=== PATIENT | male | born 1990 | race Caucasian/White ===

== ENCOUNTER 2018-12-07 09:52 | Emergency (ER) | payer BC, SELFPAY ==
--- NOTE | 2018-12-07 10:52 | EDPHYS ---
Physician Documentation [facility] Name: Russel Roy Age: 28 yrs Sex: Male : 1990 Arrival Date: 12/07/2018 Time: 09:55 Bed 17 Private MD: ED Physician Nicolas Ferreira HPI: 12/07 10:12 This 28 yrs old Male presents to ER via Ambulatory with complaints of Rash. [facility] 10:12 The patient's rash thought to be caused by an unknown cause. The rash is located on the jmm body diffusely. Onset: The symptoms/episode began/occurred gradually, 1 week(s) ago. Associated signs and symptoms: Pertinent positives: itching, Pertinent negatives: fever, swelling of lips, swelling of throat, swelling of tongue, vomiting, wheezing. This is a 28 year old male with no chronic medical conditions that presents to the ED with complaints of rash with itching for the past week. Symptoms began 1 week ago to the forehead. Patient denies shortness of breath, vomiting. . Historical: - Allergies: 10:03 No Known Allergies; aj1 - Home Meds: 10:03 None [Active]; aj1 - PMHx: 10:03 None; aj1 - PSHx: 10:03 None; aj1 - Immunization history:: Flu vaccine is not up to date. - Social history:: Smoking status: Patient/guardian denies using tobacco. - Ebola Screening: : Patient denies travel to an Ebola-affected area in the 21 days before illness onset. ROS: 10:12 Constitutional: Negative for fever, chills, and weight loss, Cardiovascular: Negative jmm for chest pain, palpitations, and edema, Respiratory: Negative for shortness of breath, cough, wheezing, and pleuritic chest pain. 10:12 Skin: Positive for rash. 10:12 All other systems are negative. Exam: 10:12 Constitutional: This is a well developed, well nourished patient who is awake, alert, jmm and in no acute distress. 10:12 ENT: Moist Mucus Membranes Neck: Trachea midline, Supple Chest/axilla: Normal chest wall appearance and motion. Cardiovascular: Regular rate and rhythm. No edema appreciated Respiratory: Normal respirations, no respiratory distress appreciated Abdomen/GI: Non distended, soft Back: Normal ROM 10:12 MS/ Extremity: Moves all extremities, no obvious deformities appreciated, no edema noted to the lower extremities Neuro: Awake and alert, normal gait Psych: Behavior is normal, Mood is normal, Patient is cooperative and pleasant 10:12 Head/face: facial rash noted. 10:12 Skin: erythema noted to the forehead, antecubital regions bilaterally. non tender to palpation, non indurated. Vital Signs: 10:03 BP 139 / 88; Pulse 74; Resp 16; Temp 98.0; Pulse Ox 100% on R/A; Weight 71.21 kg (R); aj1 Height 5 ft. 9 in. (175.26 cm) (R); Pain 6/10; 10:03 Body Mass Index 23.18 (71.21 kg, 175.26 cm) aj1 Visual Acuity: 10:31 Left Eye Visual acuity 20/20, ; Right Eye Visual acuity 20/25, ; Without Lenses; aj1 MDM: 10:11 Patient medically screened. [facility] 10:12 Data reviewed: vital signs, nurses notes. Counseling: I had a detailed discussion with [facility] the patient and/or guardian regarding: the historical points, exam findings, and any diagnostic results supporting the discharge/admit diagnosis, the need for outpatient follow up, to return to the emergency department if symptoms worsen or persist or if there are any questions or concerns that arise at home. ED course: Symptoms appear consistent with dermatitis. Patient is advised to follow up with dermatology for further evaluation. Patient is advised to return to the ED if he develops changes in vision. Shortness of breath or any other concerning symptoms. Patient understood and agrees with the plan of care. . 12/07 10:18 Order name: Visual Acuity; Complete Time: 10:31 [facility] Administered Medications: 11:02 Drug: Decadron 10 mg Route: IM; Site: left vastus lateralis; aj1 11:38 Follow up: Response: No adverse reaction aj1 Disposition: 12/07/18 10:51 Discharged to Home. Impression: Dermatitis, unspecified. - Condition is Stable. - Discharge Instructions: Rash. - Prescriptions for Prednisone 20 mg Oral Tablet - take 1 tablet by ORAL route once daily for 5 days Please take 3 tabs by mouth daily for 3 days, then 2 tabs by mouth daily for 3 days, then take 1 tab by mouth for 3 days, then take 1/2 tab by mouth for 3 days.; 20 tablet. - Work release form, Medication Reconciliation Form, Thank You Letter, Antibiotic Education, Prescription Opioid Use form. - Follow up: Private Physician; When: As needed; Reason: Recheck today's complaints, Continuance of care, Re-evaluation by your physician. Addendum: 12/08/2018 19:08 Co-signature as Attending Physician, Nicolas Ferreira MD I agree with the assessment and k dr plan of care. Signatures: Julita Goldman RN RN aj1 Nicolas Ferreira MD MD [facility] Yair Mazariegos PA PA jmm Corrections: (The following items were deleted from the chart) 12/07 11:41 10:51 12/07/2018 10:51 Discharged to Home. Impression: Dermatitis, unspecified. aj1 Condition is Stable. Forms are Medication Reconciliation Form, Thank You Letter, Antibiotic Education, Prescription Opioid Use. Follow up: Private Physician; When: As needed; Reason: Recheck today's complaints, Continuance of care, Re-evaluation by your physician. miko
--- NOTE | 2018-12-07 10:52 | ER ---
Nurse's Notes [facility] Name: Russel Roy Age: 28 yrs Sex: Male : 1990 Arrival Date: 12/07/2018 Time: 09:55 Bed 17 Private MD: Diagnosis: Dermatitis, unspecified Presentation: 12/07 10:02 Presenting complaint: Patient states: Rash to his face, bilateral AC, bilateral wrists, aj1 and left thigh for the past weeks. Reports that the rash is itchy and jones. Transition of care: patient was not received from another setting of care. Onset of symptoms was November 30, 2018. Risk Assessment: Do you want to hurt yourself or someone else? Patient reports no desire to harm self or others. Initial Sepsis Screen: Does the patient meet any 2 criteria? No. Patient's initial sepsis screen is negative. Does the patient have a suspected source of infection? No. Patient's initial sepsis screen is negative. Care prior to arrival: None. 10:02 Method Of Arrival: Ambulatory aj1 10:02 Acuity: KANE 4 aj1 Triage Assessment: 10:03 General: Appears in no apparent distress. uncomfortable, Behavior is calm, cooperative, aj1 appropriate for age. Pain: Complains of pain in face, right antecubital area, right wrist, left antecubital area, left wrist and medial aspect of left thigh Pain currently is 6 out of 10 on a pain scale. Historical: - Allergies: 10:03 No Known Allergies; aj1 - Home Meds: 10:03 None [Active]; aj1 - PMHx: 10:03 None; aj1 - PSHx: 10:03 None; aj1 - Immunization history:: Flu vaccine is not up to date. - Social history:: Smoking status: Patient/guardian denies using tobacco. - Ebola Screening: : Patient denies travel to an Ebola-affected area in the 21 days before illness onset. Screenin:05 Abuse screen: Denies threats or abuse. Denies injuries from another. Nutritional aj1 screening: No deficits noted. Tuberculosis screening: No symptoms or risk factors identified. 11:39 Fall Risk None identified. aj1 Assessment: 10:05 General: Appears in no apparent distress. uncomfortable, Behavior is calm, cooperative, aj1 appropriate for age. Pain: Complains of pain in face and medial aspect of left thigh and right wrist and right antecubital area and left wrist and left antecubital area Pain does not radiate. Pain currently is 6 out of 10 on a pain scale. Quality of pain is described as burning, Pain began one week ago Is continuous. Neuro: Level of Consciousness is awake, alert, obeys commands, Oriented to person, place, time, situation. Cardiovascular: Patient's skin is warm and dry. Respiratory: Airway is patent Respiratory effort is even, unlabored, Respiratory pattern is regular, symmetrical. GI: No signs and/or symptoms were reported involving the gastrointestinal system. : No signs and/or symptoms were reported regarding the genitourinary system. EENT: No signs and/or symptoms were reported regarding the EENT system. Derm: Rash noted that is itchy, red, raised, on face and medial aspect of left thigh and right wrist and right antecubital area and left wrist and left antecubital area. Musculoskeletal: No signs and/or symptoms reported regarding the musculoskeletal system. Circulation, motion, and sensation intact. 11:05 Reassessment: Patient appears in no apparent distress at this time. No changes from aj1 previously documented assessment. Patient and/or family updated on plan of care and expected duration. Pain level reassessed. Patient is alert, oriented x 3, equal unlabored respirations, skin warm/dry/pink. Vital Signs: 10:03 BP 139 / 88; Pulse 74; Resp 16; Temp 98.0; Pulse Ox 100% on R/A; Weight 71.21 kg (R); aj1 Height 5 ft. 9 in. (175.26 cm) (R); Pain 6/10; 10:03 Body Mass Index 23.18 (71.21 kg, 175.26 cm) aj1 Visual Acuity: 10:31 Left Eye Visual acuity 20/20, ; Right Eye Visual acuity 20/25, ; Without Lenses; aj1 ED Course: 09:55 Patient arrived in ED. rg4 10:01 Yair Mazariegos PA is PHCP. jmm 10:01 Nicolas Ferreira MD is Attending Physician. jmm 10:02 Julita Goldman RN is Primary Nurse. aj1 10:03 Triage completed. aj1 10:03 Arm band placed on Patient placed in an exam room. aj1 10:05 Patient has correct armband on for positive identification. Bed in low position. Call aj1 light in reach. 10:05 No provider procedures requiring assistance completed. aj1 11:39 Patient did not have IV access during this emergency room visit. aj1 Administered Medications: 11:02 Drug: Decadron 10 mg Route: IM; Site: left vastus lateralis; aj1 11:38 Follow up: Response: No adverse reaction aj1 Outcome: 10:51 Discharge ordered by . miko 11:40 Discharged to home ambulatory. aj1 11:40 Condition: good 11:40 Discharge instructions given to patient, Instructed on discharge instructions, follow up and referral plans. medication usage, Demonstrated understanding of instructions, follow-up care, medications, Prescriptions given X 1. 11:41 Patient left the ED. aj1 Signatures: Julita Goldman RN RN aj1 Yair Mazariegos PA PA jmm Garcia, Rubi rg4
[2018-12-07] MEDS ORDERED: DEXAMETHASONE 4 MG/ML VIAL ONE (11:00)
== END 2018-12-07 11:41 | disposition home or self-care (01) ==
LOC: ER 09:52
DX: L30.9 Dermatitis, unspecified (principal)
CPT/HCPCS: 96372; 99283

== ENCOUNTER 2020-08-12 16:06 | Emergency (ER) | payer SELFPAY ==
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
[2020-08-12] MEDS ORDERED: TETANUS & DIPHTHERIA TOX,ADULT 0.5 ML VIAL ONE (16:43)
[2020-08-12] MEDS ORDERED: KETOROLAC 30 MG/ML INJ ONE (16:43)
[2020-08-12 17:55] VITALS: BP 127/86; TEMP 98; O2SAT 99
== END 2020-08-12 17:09 | disposition home or self-care (01) ==
LOC: ER 16:06
DX: T21.22XA Burn of second degree of abdominal wall, initial encounter (principal); X11.8XXA Contact with other hot tap-water, initial encounter; Y93.G3 Activity, cooking and baking; Y92.009 Unspecified place in unspecified non-institutional (private) residence as the place of occurrence of the external cause; Z23 Encounter for immunization
CPT/HCPCS: 90471; 90714; 96372; 99283

== ENCOUNTER 2022-09-15 19:28 | Emergency (ER) | payer SELFPAY ==
--- OUTSIDE RECORDS SUMMARY | 2022-09-15 19:31 | XMS REPORT | Continuity of Care Document ---
:1990 Author Organization [facility] t Address [address] [place] [address] Care Team Providers Name Role Phone Kiana Sanchez Attending Clinician Unavailable Problems This patient has no known problems. Allergies, Adverse Reactions, Alerts This patient has no known allergies or adverse reactions. Medications This patient has no known medications. Procedures This patient has no known procedures. Encounters Start End Encounter Admission Attending Care Care Encounter Source Date/Time Date/Time Type Type Clinicians Facility Department ID 2021-12-09 Outpatient Sanchez, [facility] [id number] Common 10:56:02 Kiana [facility] 2021-11-04 Outpatient Sanchez, [facility] [id number] Common 14:39:16 Kiana [facility] 2021-11-04 Outpatient Sanchez, [facility] [id number] Common 14:24:57 Kiana [id number] [facility] 2021-11-04 Outpatient Sanchez, [facility] [id number] Common 14:24:40 Kiana [id number] [facility] 2021-11-04 Outpatient Sanchez, [facility] [id number] Common 14:22:18 Kiana [id number] [facility] Results This patient has no known results.
--- NOTE | 2022-09-15 20:47 | EDPHYS ---
Physician Documentation [facility] Name: Russel Roy Age: 32 yrs Sex: Male : 1990 Arrival Date: 09/15/2022 Time: 19:32 Bed 11 Private MD: ED Physician Historical: - Allergies: 09/15 20:02 No Known Allergies; tw5 - Home Meds: 20:02 None [Active]; tw5 - PMHx: 20:02 None; tw5 - PSHx: 20:02 None; tw5 - Immunization history:: Last tetanus immunization: up to date. - Social history:: Smoking status: Patient reports the use of cigarette tobacco products, smokes one-half pack cigarettes per day, Reported history of juuling and/or vaping. Vital Signs: 20:01 BP 113 / 85; Pulse 63; Resp 18; Temp 98.6; Pulse Ox 100% on R/A; Weight 86.18 kg; tw5 Height 5 ft. 10 in. (177.80 cm); Pain 1/10; 20:32 BP 116 / 88; Pulse 67; Resp 18; Pulse Ox 100% on R/A; ld1 20:01 Body Mass Index 27.26 (86.18 kg, 177.80 cm) tw5 MDM: 20:40 Patient medically screened. sb4 Administered Medications: No medications were administered Disposition Summary: 09/15/22 20:47 Eloped Disposition: before being seen by provider sb4 Reason: (see nurse's notes) sb4 Signatures: Maricarmen Magana tw5 Clarisa Jensen PA-C PA-C sb4
--- NOTE | 2022-09-15 20:47 | ER ---
Nurse's Notes [facility] Name: Russel Roy Age: 32 yrs Sex: Male : 1990 Arrival Date: 09/15/2022 Time: 19:32 Bed 11 Private MD: Diagnosis: Presentation: 09/15 20:01 Chief complaint: Patient states: "I was at work and I tripped over a metal lift. I hit tw5 it my knee on it and it had a rough edge so it cut me and pushed my skin back.". Coronavirus screen: Vaccine status: Patient reports being unvaccinated. Ebola Screen: Patient negative for fever greater than or equal to 101.5 degrees Fahrenheit, and additional compatible Ebola Virus Disease symptoms Patient denies exposure to infectious person. Patient denies travel to an Ebola-affected area in the 21 days before illness onset. Initial Sepsis Screen: Does the patient meet any 2 criteria? No. Patient's initial sepsis screen is negative. Does the patient have a suspected source of infection? No. Patient's initial sepsis screen is negative. Risk Assessment: Do you want to hurt yourself or someone else? Patient reports no desire to harm self or others. Onset of symptoms was September 15, 2022 at 15:30. 20:01 Method Of Arrival: Ambulatory tw5 20:01 Acuity: KANE 5 tw5 Triage Assessment: 20:02 General: Appears in no apparent distress. Behavior is calm, cooperative, appropriate tw5 for age. Pain: Pain currently is 1 out of 10 on a pain scale. Musculoskeletal: Range of motion: intact in all extremities. Injury Description: Laceration sustained to right knee is not bleeding, was sustained 4-6 hours ago. Historical: - Allergies: 20:02 No Known Allergies; tw5 - Home Meds: 20:02 None [Active]; tw5 - PMHx: 20:02 None; tw5 - PSHx: 20:02 None; tw5 - Immunization history:: Last tetanus immunization: up to date. - Social history:: Smoking status: Patient reports the use of cigarette tobacco products, smokes one-half pack cigarettes per day, Reported history of juuling and/or vaping. Screenin:32 Abuse screen: Denies threats or abuse. Denies injuries from another. Nutritional ld1 screening: No deficits noted. Tuberculosis screening: No symptoms or risk factors identified. Fall Risk None identified. Assessment: 20:32 Reassessment: Patient appears in no apparent distress at this time. Patient and/or ld1 family updated on plan of care and expected duration. Pain level reassessed. Patient is alert, oriented x 3, equal unlabored respirations, skin warm/dry/pink. See triage assessment. 20:44 Reassessment:. ld1 20:47 Reassessment: Pt left from room. "Stated I decided I do not need to be seen anymore." ld1 Left to notify provider - upon arrival back to room, pt was gone. Vital Signs: 20:01 BP 113 / 85; Pulse 63; Resp 18; Temp 98.6; Pulse Ox 100% on R/A; Weight 86.18 kg; tw5 Height 5 ft. 10 in. (177.80 cm); Pain 1/10; 20:32 BP 116 / 88; Pulse 67; Resp 18; Pulse Ox 100% on R/A; ld1 20:01 Body Mass Index 27.26 (86.18 kg, 177.80 cm) tw5 ED Course: 19:32 Patient arrived in ED. ja2 20:02 Triage completed. tw5 20:02 Arm band placed on. tw5 20:32 Sarah Nevarez, LOU is Primary Nurse. ld1 20:32 Patient has correct armband on for positive identification. Bed in low position. Call ld1 light in reach. Side rails up X2. Pulse ox on. NIBP on. Notified ED physician of. Door closed. Noise minimized. 20:32 No provider procedures requiring assistance completed. ld1 20:40 Clarisa Jensen PA-C is PHCP. sb4 20:40 Quentin Cornell MD is Attending Physician. sb4 Administered Medications: No medications were administered Medication: 20:32 VIS not applicable for this client. ld1 Outcome: 20:48 Patient left the ED. ld1 Signatures: Sarah Nevarez RN RN ld1 Cassie Salgado Tiffany tw5 Clarisa Jensen PA-C PA-C sb4
[2022-09-16 02:10] VITALS: TEMP 98.6; O2SAT 100
[2022-09-16 02:11] VITALS: BP 116/88
== END 2022-09-15 20:48 | disposition left against medical advice (07) ==
LOC: ER 19:28
DX: Z53.21 Procedure and treatment not carried out due to patient leaving prior to being seen by health care provider (principal)
CPT/HCPCS: 99282

== ENCOUNTER 2022-11-07 21:53 | Emergency (ER) | payer SELFPAY ==
[2022-11-07] MEDS ORDERED: LORazepam 2 MG/ML VIAL ONE (22:05)
--- OUTSIDE RECORDS SUMMARY | 2022-11-07 22:05 | XMS REPORT | Continuity of Care Document ---
:1990 Author Organization [facility] t Address [address] [place] [address] Care Team Providers Name Role Phone Kiana [...] Facility Department ID 2021-12-09 Outpatient Sanchez, [facility] [id number] Common 10:56:02 Kiana [facility] 2021-11-04 Outpatient Sanchez, STLC [facility] [id number] Common 14:39:16 Kiana [facility] 2021-11-04 Outpatient Sanchez, STLC [facility] [id number] Common 14:24:57 Kiana [id number] [facility] 2021-11-04 Outpatient Sanchez, STLMLC [facility] [id number] Common 14:24:40 Kiana [id number] [facility] 2021-11-04 Outpatient Sanchez, STLC [facility] [id number] Common 14:22:18 Kiana [id number] [facility] Results This patient has no known results.
[2022-11-07 22:27] LABS: Hematocrit 42.7 % (39.6-49.0); Lymphocytes % 7.4 % (15.3-44.8); MCV 89.1 fL (80-100); MPV 8.5 fL (7.6-11.3); RBC Red Blood Cell Count 4.78 M/uL (4.33-5.43)
[2022-11-07 22:33] LABS: Albumin 4.6 g/dL (3.4-5.0); Protein, Total 8.1 g/dL (6.4-8.2)
[2022-11-07] MEDS ORDERED: NA CHLORIDE 0.9% 1,000 ML ONE (22:45)
[2022-11-07] MEDS ORDERED: KETOROLAC 30 MG/ML INJ ONE (23:09)
[2022-11-08 01:38] LABS: Potassium 4.1 mmol/L (3.5-5.1)
--- NOTE | 2022-11-08 01:42 | EDPHYS ---
Physician Documentation [facility] Name: Russel Roy Age: 32 yrs Sex: Male : 1990 Arrival Date: 11/07/2022 Time: 21:54 Bed 4 Private MD: ED Physician Dk Carpenter HPI: 11/07 23:50 This 32 yrs old Male presents to ER via EMS with complaints of Nausea, vomiting, kb diarrhea. 23:50 The patient presents to the emergency department with nausea, vomiting, diarrhea. kb Onset: The symptoms/episode began/occurred this morning. Possible causes: bad food exposure. The symptoms are aggravated by nothing. The symptoms are alleviated by nothing. Severity of symptoms: At their worst the symptoms were mild in the emergency department the symptoms are unchanged. The patient has not experienced similar symptoms in the past. The patient has not recently seen a physician. Patient reports he ate crawfish yesterday woke up at about 530 this morning with nausea and severe vomiting. States he had some diarrhea today. Unable to tolerate anything by mouth today. Decreased urination.. Historical: - Allergies: 21:57 No Known Allergies; jb4 - PMHx: 21:57 Anxiety; jb4 - Immunization history:: Adult Immunizations up to date. - Social history:: Smoking status: Patient reports the use of cigarette tobacco products, denies chronic smoking, but will smoke occasionally, Patient uses alcohol, occasionally. ROS: 23:50 Constitutional: Negative for fever, chills, and weight loss. kb 23:50 Abdomen/GI: Positive for nausea, vomiting, and diarrhea. 23:50 All other systems are negative. Exam: 23:50 Constitutional: This is a well developed, well nourished patient who is awake, alert, kb and in no acute distress. Head/Face: Normocephalic, atraumatic. ENT: Moist Mucous membranes Cardiovascular: Regular rate and rhythm with a normal S1 and S2. No gallops, murmurs, or rubs. No pulse deficits. Respiratory: Respirations even and unlabored. No increased work of breathing. Talking in full sentences Abdomen/GI: Soft, non-tender. No distention Skin: Warm, dry with normal turgor. Normal color. MS/ Extremity: Pulses equal, no cyanosis. Neurovascular intact. Full, normal range of motion. Neuro: Awake and alert, GCS 15, oriented to person, place, time, and situation. Moves all extremities. Normal gait. Vital Signs: 21:55 BP 134 / 87; Pulse 99; Resp 14; Temp 98.5; Pulse Ox 100% on R/A; Weight 83.91 kg; tw5 Height 5 ft. 9 in. (175.26 cm); Pain 01; 22:56 BP 123 / 83; Pulse 87; Resp 26; Pulse Ox 99% on R/A; jb4 11/08 00:48 BP 113 / 75; Pulse 92; Resp 18; Pulse Ox 100% on R/A; jb4 01:48 BP 101 / 72; Pulse 94; Resp 16; Pulse Ox 100% on R/A; jb4 11/07 21:55 Body Mass Index 27.32 (83.91 kg, 175.26 cm) tw5 MDM: 11/07 21:55 Patient medically screened. kb 23:51 Differential diagnosis: Nonspecific abd pain, gastritis, viral gastroenteritis, Food kb poisoning, dehydration. Data reviewed: vital signs, nurses notes. Consideration of Admission/Observation Escalation of care including admission/observation considered. Historians other than the Patient: EMS: [facility]. 11/08 00:50 Transition of care: After a detail discussion of the patient's case, care is kb transferred to Dk Carpenter DO. 01:00 Transition of care: Care assumed from Genevieve LEDEZMA. ca3 01:42 I considered the following discharge prescriptions or medication management in the ca3 emergency department Medications were administered in the Emergency Department. See MAR. Care significantly affected by the following Social Determinants of Health: Poor access to healthcare and/or lack of insurance. Counseling: I had a detailed discussion with the patient and/or guardian regarding: the historical points, exam findings, and any diagnostic results supporting the discharge/admit diagnosis, lab results, the need for outpatient follow up, to return to the emergency department if symptoms worsen or persist or if there are any questions or concerns that arise at home. Special discussion: I discussed with the patient/guardian in detail that at this point there is no indication for admission to the hospital. It is understood, however, that if the symptoms persist or worsen the patient needs to return immediately for re-evaluation. ED course: On reevaluation patient is improved, alert and orient x4, no apparent distress, nontoxic-appearing. Discussed labs with patient. Patient to follow-up with his primary care physician in 2 to 3 days. Patient understands and agrees with plan. All questions were answered. Return precautions discussed include vomiting, inability to tolerate p.o., abdominal pain, fevers, or any other concerns.. 11/07 21:57 Order name: CBC with Diff; Complete Time: 22:35 kb 11/07 21:57 Order name: CMP; Complete Time: 22:36 kb 11/07 21:57 Order name: Lipase; Complete Time: 22:36 kb 11/07 23:51 Order name: BMP; Complete Time: 01:39 kb 11/07 21:57 Order name: IV Saline Lock; Complete Time: 21:58 kb 11/07 21:57 Order name: Labs collected and sent; Complete Time: 21:58 kb Administered Medications: 11/07 22:08 Drug: Ativan (LORazepam) 0.5 mg Route: IVP; Site: left antecubital; [facility] 23:00 Follow up: Response: No adverse reaction; Marked relief of symptoms [facility] 22:44 Drug: NS 0.9% 1000 ml Route: IV; Rate: 1000 ml; Site: left antecubital; 4 11/08 00:00 Follow up: Response: No adverse reaction; IV Status: Completed infusion; IV Intake: jb4 1000ml 11/07 23:21 Drug: Ketorolac 15 mg Route: IVP; Site: left antecubital; jb4 11/08 00:00 Follow up: Response: No adverse reaction; Marked relief of symptoms; Pain is decreased jb4 Disposition: 01:42 Co-signature as Attending Physician, Dk Carpenter DO. ms3 Disposition Summary: 11/08/22 01:41 Discharge Ordered Location: Home ms3 Condition: Stable ms3 Diagnosis - Nausea with vomiting, unspecified ms3 - Dehydration ms3 - Diarrhea, unspecified ms3 Followup: kb - With: Emergency Department - When: As needed - Reason: Worsening of condition Followup: kb - With: Private Physician - When: 2 - 3 days - Reason: Recheck today's complaints, Continuance of care, Re-evaluation by your physician Discharge Instructions: - Discharge Summary Sheet kb - Food Choices to Help Relieve Diarrhea, Adult kb - Viral Gastroenteritis, Adult, [id number] kb - Nausea and Vomiting, Adult, [id number] kb - Diarrhea, Adult, [id number] kb Forms: - Medication Reconciliation Form ms3 - Thank You Letter ms3 - Antibiotic Education ms3 - Prescription Opioid Use ms3 - Work release form vc1 Prescriptions: - dicyclomine 20 mg Oral Tablet - take 1 tablet by ORAL route 4 times per day As needed; 20 tablet; Refills: 0, kb Product Selection Permitted - ondansetron 4 mg Oral - take 1 tablet by SUBLINGUAL route every 6 hours As needed; 15 tablet; Refills: kb 0, Product Selection Permitted Signatures: Dispatcher [employer] [facility] Genevieve Parish, OVERWEAVER-C OVERWEAVER-Ckb David Marie, LOU RN jb4 Dk Carpenter DO DO ms3 Maricarmen Magana tw5
--- NOTE | 2022-11-08 01:42 | ER ---
Nurse's Notes [facility] Name: Russel Roy Age: 32 yrs Sex: Male : 1990 Arrival Date: 11/07/2022 Time: 21:54 Bed 4 Private MD: Diagnosis: Nausea with vomiting, unspecified;Dehydration;Diarrhea, unspecified Presentation: 11/07 21:55 Chief complaint:. Chief complaint: Patient states: " I have been vomiting all day long. tw5 It wears me out and I get really light headed after I vomit. I am also feeling extremely anxious.". Coronavirus screen: Vaccine status: Patient reports being unvaccinated. Ebola Screen: Patient negative for fever greater than or equal to 101.5 degrees Fahrenheit, and additional compatible Ebola Virus Disease symptoms Patient denies exposure to infectious person. Patient denies travel to an Ebola-affected area in the 21 days before illness onset. Initial Sepsis Screen: Does the patient meet any 2 criteria? No. Patient's initial sepsis screen is negative. Does the patient have a suspected source of infection? No. Patient's initial sepsis screen is negative. Risk Assessment: Do you want to hurt yourself or someone else? Patient reports no desire to harm self or others. Onset of symptoms was November 07, 2022 at 05:00. 21:55 Method Of Arrival: EMS: [facility] tw5 21:55 Acuity: KANE 3 tw5 21:56 Chief complaint: EMS states: Pt reports vomiting since 5am. Was dehydrated upon EMS jb4 arrival. Given 4mg of zofran and 300ml of LR via 20g to the LAC. Reports intermittent diarrhea. Triage Assessment: 21:55 General: Appears in no apparent distress. Behavior is calm, cooperative, appropriate tw5 for age, texting on the phone with " My girlfriend in [place], she just wants to make sure I am okay.". Pain: Complains of pain in back Pain currently is 1 out of 10 on a pain scale. Historical: - Allergies: 21:57 No Known Allergies; jb4 - PMHx: 21:57 Anxiety; jb4 - Immunization history:: Adult Immunizations up to date. - Social history:: Smoking status: Patient reports the use of cigarette tobacco products, denies chronic smoking, but will smoke occasionally, Patient uses alcohol, occasionally. Screenin:57 [facility] ED Fall Risk Assessment (Adult) History of falling in the last 3 months, tw5 including since admission Yes- single mechanical fall (1 pt). Abuse screen: Denies threats or abuse. Denies injuries from another. Nutritional screening: No deficits noted. Tuberculosis screening: No symptoms or risk factors identified. Assessment: 21:57 GI: Reports nausea, vomiting. tw5 22:56 Reassessment: Patient appears in no apparent distress at this time. Patient and/or jb4 family updated on plan of care and expected duration. Pain level reassessed. Patient is alert, oriented x 3, equal unlabored respirations, skin warm/dry/pink. 11/08 00:48 Reassessment: Patient appears in no apparent distress at this time. Patient and/or jb4 family updated on plan of care and expected duration. Pain level reassessed. Patient is alert, oriented x 3, equal unlabored respirations, skin warm/dry/pink. Patient states feeling better. 01:48 Reassessment: Patient appears in no apparent distress at this time. Patient and/or jb4 family updated on plan of care and expected duration. Pain level reassessed. Patient is alert, oriented x 3, equal unlabored respirations, skin warm/dry/pink. Vital Signs: 11/07 21:55 BP 134 / 87; Pulse 99; Resp 14; Temp 98.5; Pulse Ox 100% on R/A; Weight 83.91 kg; tw5 Height 5 ft. 9 in. (175.26 cm); Pain 10; 22:56 BP 123 / 83; Pulse 87; Resp 26; Pulse Ox 99% on R/A; jb4 11/08 00:48 BP 113 / 75; Pulse 92; Resp 18; Pulse Ox 100% on R/A; jb4 01:48 BP 101 / 72; Pulse 94; Resp 16; Pulse Ox 100% on R/A; jb4 11/07 21:55 Body Mass Index 27.32 (83.91 kg, 175.26 cm) tw5 ED Course: 11/07 21:54 Patient arrived in ED. tw5 21:55 Genevieve Parish FNP-C [facility]. kb 21:55 Dk Carpenter DO is Attending Physician. kb 21:55 Arm band placed on Patient placed in an exam room. tw5 21:56 David Marie, RN is Primary Nurse. jb4 21:57 Triage completed. tw5 21:57 Patient has correct armband on for positive identification. Placed in gown. Bed in low tw5 position. Call light in reach. Side rails up X 1. Client placed on continuous cardiac and pulse oximetry monitoring. NIBP monitoring applied. Door closed. Noise minimized. Lights dimmed. Warm blanket given. Verbal reassurance given. 21:57 Maintain EMS IV. Dressing intact. Good blood return noted. Site clean \\T\\ dry. Gauge \\T\\ tw 5 site: 20 G LAC. 21:58 No provider procedures requiring assistance completed. tw5 11/08 01:48 IV discontinued, intact, bleeding controlled, No redness/swelling at site. Pressure jb4 dressing applied. Administered Medications: 11/07 22:08 Drug: Ativan (LORazepam) 0.5 mg Route: IVP; Site: left antecubital; jb4 23:00 Follow up: Response: No adverse reaction; Marked relief of symptoms jb4 22:44 Drug: NS 0.9% 1000 ml Route: IV; Rate: 1000 ml; Site: left antecubital; jb4 11/08 00:00 Follow up: Response: No adverse reaction; IV Status: Completed infusion; IV Intake: jb4 1000ml 11/07 23:21 Drug: Ketorolac 15 mg Route: IVP; Site: left antecubital; jb4 11/08 00:00 Follow up: Response: No adverse reaction; Marked relief of symptoms; Pain is decreased jb4 Medication: 11/07 21:57 VIS not applicable for this client. tw5 Intake: 11/08 00:00 IV: 1000ml; Total: 1000ml. jb4 Outcome: 01:41 Discharge ordered by . ms3 01:48 Discharged to home ambulatory. jb4 01:48 Condition: stable 01:48 Discharge instructions given to patient, Instructed on discharge instructions, follow up and referral plans. medication usage, Demonstrated understanding of instructions, follow-up care, medications, Prescriptions given X 2. 01:50 Patient left the ED. jb4 Signatures: Genevieve Parish, WAGON DRILLER-C WAGON DRILLER-CkDavid Bermudez RN RN jb4 Dk Carpenter DO DO ms3 [place] Maricarmen tw5 Corrections: (The following items were deleted from the chart) 01:49 01:48 Discharge instructions given to patient, Instructed on discharge instructions, jb4 follow up and referral plans. medication usage, Demonstrated understanding of instructions, follow-up care, medications, Prescriptions given X 1, jb4
[2022-11-08 02:17] VITALS: TEMP 98.5
[2022-11-08 02:19] VITALS: O2SAT 100
[2022-11-08 02:20] VITALS: BP 101/72
== END 2022-11-08 01:50 | disposition home or self-care (01) ==
LOC: ER 21:53
DX: E86.0 Dehydration (principal); R19.7 Diarrhea, unspecified; Z72.0 Tobacco use
CPT/HCPCS: 36415; 80048; 80053; 83690; 85025; 96361; 96374; 96375; 99283; J7030

== ENCOUNTER 2024-11-26 13:06 | Emergency (ER) | payer SELFPAY ==
--- OUTSIDE RECORDS SUMMARY | 2024-11-26 13:08 | XMS REPORT | Continuity of Care Document ---
Author Name Unknown Address [address] [facility] [address] [place] [address] [facility] thconnect Address [address] [facility] [address] [place] [address] Care Team Providers Care Radiology Practitioner Assistant Name Role Phone Pcp, Patient Does Not Have A Primary Care Physic jose david Kiana Sanchez Attending Clinician Unavailable Avani Ballard MD Attending Clinician [phone] Jennifer Van RN Attending Clinician [phone] CARLOS WALTERS Attending Clinician Laury Tobin MD Attending Clinician [phone] Carlos Walters MD Attending Clinician [phone] CARLOS WALTERS Admitting Clinician Carlos Nielsen MD Admitting Clinician [phone] Payers Payer Name Policy Type Policy Number Effective Date Expirati on Date Source Problems Condition Name Condition Details Condition Category Status Onset Date Resolution Date Last Treatment Date Treating Clinician Comments Source RLQ abdominal pain RLQ abdominal pain Disease Active 03-12 00:00: 00 [facility] Allergies, Adverse Reactions, Alerts Allergy Name Allergy Type Status Severity Reaction(s) Onset Date Inactive Date Treating Clinician Comments Source NO KNOWN ALLERGIE S Drug Class Active [facility] Social History Social Habit Start Date Stop Date Quantity Comments Source Sexual orientation U [facility] History of tobacco use Passive smoker [facility] Cigarettes smoked current (pack per day) - Reported 2024-03-12 00:00:00 2024-03-12 00:00:00 [facility] Cigarette pack-years 2024-03-12 00:00:00 2024-03-12 00:00:00 [facility] Tobacco use and exposure 2024-03-12 00:00:00 2024-03-12 00:00:00 Former smokeless tobacco user [facility] History of Social function 2024-03-12 00:00:00 2024-03-12 00:00:00 [facility] Education 2024-03-12 00:00:00 2024-03-12 00:00:00 21 [facility] Sex assigned at 1990 00:00:00 1990 00:00:00 [facility] Smoking Status Start Date Stop Date Source Smokes tobacco daily 2024-03-12 00:00:00 [facility] Medications Ordered Medication Name Filled Medication Name Start Date Stop Date Current Medication? Ordering Clinician Indication Dosage Frequency Signature (SIG) Comments Components Source enoxaparin (LOVENOX) injection 40 mg 03-13 22:00: 00 Yes 40mg 40 mg, Subcutaneo us, DAILY AT 1700, First dose on Tue03/13/24 at 1700, Until Discontinu ed, Routine [facility] piperacilli n-tazobacta m (ZOSYN) 3.375 g in NaCl 0.9% (NS) 100 mL MINI-BAG 03-13 10:45: 00 03-13 14:09 :43 No 3.375g 3.375 g, IV Piggyback, Q8H ABX, 21 doses, First dose on Tue03/13/24 at 0545, Last dose on Tue03/19/24 at 2145, Administer over 4 Hours, 100 mL, Reason for Anti-Infec tive: Documented Infection, Documented Infection Site: Abdominal, Duration of Therapy: 7 days [facility] morpHINE (4 mg/mL) injection 4 mg 03-13 02:30: 00 03-13 02:28 :00 No 4mg 4 mg, Slow IV Push, ONCE, 1 dose, On Tue03/12/24 at 2130, STAT [facility] ondansetron (ZOFRAN (PF)) injection 4 mg 03-13 02:30: 00 03-13 02:28 :00 No 4mg 4 mg, Slow IV Push, ONCE, 1 dose, On Tue03/12/24 at 2130, RIGOBERTO [facility] NaCl 0.9% (NS) IV infusion 1,000 mL 03-13 02:30: 00 03-13 13:56 :02 No 1000mL at 100 mL/hr, IV Infusion, CONTINUOUS , Starting on Tue03/12/24 at 2130, Until Tue03/13/24 at 0856, Routine [facility] ondansetron (ZOFRAN (PF)) injection 4 mg 03-13 02:14: 47 Yes 4mg 4 mg, Slow IV Push, Q6HPRN, Starting on Tue03/12/24 at 2114, Until Discontinu ed, Routine, Nausea and Vomiting (N/V) [facility] FENTanyl PF (SUBLIMAZE (PF)) injection 12.5 mcg 03-13 02:14: 43 03-13 15:53 :16 No 12.5ug 12.5 mcg, Slow IV Push, Q4HPRN, Starting on Tue03/12/24 at 2114, Until Tue03/13/24 at 1053, Routine, Pain (scale 7-10), Pain (scale 4-6) [facility] LORazepam (ATIVAN) injection 1 mg 03-13 01:45: 00 03-13 01:38 :00 No 1mg 1 mg, Slow IV Push, ONCE, 1 dose, On Tue03/12/24 at 2045, STAT [facility] ondansetron (ZOFRAN (PF)) injection 4 mg 03-12 23:45: 00 03-12 23:17 :00 No 4mg 4 mg, Slow IV Push, ONCE, 1 dose, On Tue03/12/24 at 1845, RIGOBERTO [facility] iopamidol (ISOVUE 370-500 mL) injection 79 mL 03-12 23:29: 00 03-12 23:29 :00 No [id number] 79mL 79 mL, Intravenou s, ONCE, 1 dose, On Tue03/12/24 at 1845, Routine [facility] morpHINE (4 mg/mL) injection 4 mg 03-12 22:45: 00 03-12 23:21 :00 No 4mg 4 mg, Slow IV Push, ONCE, 1 dose, On Tue03/12/24 at 1745, STAT [facility] Vital Signs Vital Name Observation Time Observation Value Comments S ource Systolic blood pressure 2024-03-13 13:00:00 120 mm[Hg] [facility] Diastolic blood pressure 2024-03-13 13:00:00 80 mm[Hg] [facility] Heart rate 2024-03-13 13:00:00 58 /min [facility] Body temperature 2024-03-13 13:00:00 36.44 Laya [facility] Oxygen saturation in Arterial blood by Pulse oximetry 2024-03-13 13:00:00 98 /min [facility] Respiratory rate 2024-03-13 05:15:00 16 /min [facility] Body height 2024-03-13 03:03:00 175.3 cm [facility] Body weight 2024-03-13 03:03:00 81.647 kg [facility] BMI 2024-03-13 03:03:00 26.58 kg/m2 [facility] Procedures Procedure Date / Time Performed Performing Clinician Source MAGNESIUM 2024-03-13 10:27:00 [facility]OL[facility] (NA, K, CL, CO2, GLUCOSE, BUN, CREATININE, CA) 2024-03-13 10:27:00 Carlos Walters [facility] CBC WITH DIFF 2024-03-13 10:27:00 [facility] PR[facility] / INR 2024-03-13 10:27:00 Sierra Walters [facility] ACTIVATED PARTIAL THRMPLAS VIVIAN 2024-03-13 10:27:00 Carlos Walters [facility] PHOSPHORUS 2024-03-13 03:06:00 Carlos Walters Uni [facility] CT ABDOMEN PELVIS W CONTRAST 2024-03-12 23:34:00 Laury Vera [facility] URINALYSIS 2024-03-12 23:20:00 Laury Vera [facility] COMP. METABOLIC PANEL (46365) 2024-03-12 23:16:00 Laury Vera [facility] CBC WITH DIFF 2024-03-12 23:16:00 Laury Vera [facility] Encounters Start Date/Time End Date/Time Encounter Type Admission Type Attending [facility] Facility Care Department Encounter ID Source 2021-12-09 10:56[facility]02 [facility] [id number] [facility] 2021-11-04 14:39:16 Outpatient SanchezKiana [facility] [id number] [facility] 2021-11-04 14:24:57 Outpatient SanchezKiana [facility] [id number] [facility] 2021-11-04 14:24:40 [facility] [id number] [facility] 2021-11-04 14:22:18 Outpatient SanchezKiana negro [facility] [id number] [facility] 2024-03-20 00:00:00 2024-04-18 04:05:46 [facility] [id number] [facility] 2024-03-13 00:00:00 2024-03-16 08:47:30 Telephone Nellie [facility] [id number] [facility] 2024-03-14 00:00:00 2024-03-14 11:58:04 Transition of Care Jennifer Van [id number] [facility] 2024-03-12 17:19:00 2024-03-13 11:01:00 Outpatient CARLOS MORIN [facility] [id number] [facility] 2024-03-12 17:19:00 2024-03-13 11:01:00 Emergency Laury Vera Mohammad [facility] [id number] [facility] Results Test Description Test Time Test Comments Results Result Co mments Source [facility] [id number] 11:21:35* Test Item Value Reference Range Interpretation Comme [facility] MAGNESIUM (test code = 3761923068) 2.2 mg/dL 1.7-2.4 Lab Interpretation (test cod e = 99908-7) Normal [facility] System[facility]th[facility] Time / [id number] 11:17:11* Test Item Value Reference Range Interpretation Comme [facility] PROTIME PATIENT (test code = 5964-2) 12.3 10.1-12.6 INR (test code = 6301-6) 1.0 Normal INR <1.1; Warfarin Therapeutic range 2.0 to 3.0 or 2.5 to 3.5, depending upon the indications. Lab Interpretation (test code = 03028-8) Normal [facility] SystemaPTT2024-06-04 11:17:11* Test Item Value Reference Range Interpretation Comme nts APTT Patient (test code = 3173-2) 31 26-36 MOISÉS (test code = MOISÉS) The [facility] patient population mean normal value for aPTT is 30 seconds. Lab Interpretation (test code = 28439-3) Normal [facility] with [id number] 11:13:33* Test Item Value Reference Range Interpretation Comme nts WBC (test code = 6690-2) 5.61 4.20-10.70 RBC (test code = 789-8) 4.53 4.26-5.52 HGB (test code = 718-7) 13.7 g/dL 12.2-16.4 HCT (test code = 4544-3) 40.2 % 38.4-49.3 MCV (test code = 787-2) 88.7 fL 81.7-95.6 MCH (test code = 785-6) 30.2 pg 26.1-32.7 MCHC (test code = 786-4) 34.1 g/dL 31.2-35.0 RDW-SD (test code = 32270-9) 43.8 fL 38.5-51.6 RDW-CV (test code = 788-0) 13.5 % 12.1-15.4 PLT (test code = 777-3) 294 150-328 MPV (test code = 04089-3) 10.1 fL 9.8-13.0 NRBC/100 WBC (test code = 9185976331) 0.0 0.0-10.0 NRBC x10^3 (test code = 0309504569) See_Comment [Automated me ssage] The system which generated this result transmitted reference range: 10*3/?L. The reference range was not used to interpret this result as normal/abnormal. GRAN MAT (NEUT) % (test code = 770-8) 43.7 % IMM GRAN % (test code = 7902124927) 0.70 % LYMPH % (test code = 736-9) 41.5 % MONO % (test code = 5905-5) 10.5 % EOS % (test code = 713-8) 2.7 % BASO % (test code = 706-2) 0.9 % GRAN MAT x10^3(ANC) (test code = 5705190000) 2.45 10*3/uL 1.99-6.95 IMM GRAN x10^3 (test code = 9590666432) 0.04 10*3/uL 0.00-0.06 LYMPH x10^3 (test code = 731-0) 2.33 10*3/uL 1.09-3.23 MONO x10^3 (test code = 742-7) 0.59 10*3/uL 0.36-1.02 EOS x10^3 (test code = 711-2) 0.15 10*3/uL 0.06-0.53 BASO x10^3 (test code = 704-7) 0.05 10*3/uL 0.01-0.09 [facility] System[facility] [id number] 03:35:52* Test Item Value Reference Range Interpretation Comme nts PHOSPHORUS (test code = 7097483690) 2.2 mg/dL 2.5-5.0 L Slight hemolysis Lab Interpretation (test code = 13286-5) Abnormal [facility] System[facility]EN PELVIS W [id number] 01:09:07EXAMINATION: ?CT ABDOMEN AND PELVIS WITH CONTRAST 03/12/2024 8:05 PM Ordering physician: LAURY VERA CLINICAL HISTORY: ?Right lower quadrant pain COMPARISON EXAM(S): ?None Technique: Contiguous axial sections through the abdomen and pelvis were obtained fromthe lung bases to the ischial tuberosities following the uneventfuladministration of intravenous contrast. ?Coronal and sagittal reformattedsequences were also obtained. Oral contrast was not administered.?CT scandone according to ALARA (AsLow as Reasonably Achievable)? Findings: The visualized lung beasley are clear. No pleural effusions. CT abdomen:Punctate splenic granuloma. The liver, gallbladder, biliary tree, pancreas, kidneys, adrenal glands,ureters, appendix, and gastrointestinal tract, are radiographicallyunremarkable in appearance. ? No focal fluid collections or pathologicadenopathy. CT pelvis: ?The prostate, seminal vesicles, bladder, and pelvic structures,are radiographically unremarkable in appearance. ? No focal fluidcollections or pathologic adenopathy. The visualized bony skeleton demonstrates no acute radiographicabnormalities.[facility] Consult Notes Date/Time Note Provider Source 2024-03-12 17:59:51 Associated Order(s): CONSULT GENERAL SURGERY General Surgery Consult Note Chief Complaint: RLQ pain HPI: Russel Roy is a 33 year old male presenting with 2 day hx of worsening RLQ pain. Pt reports that he has been having episodic pain that radiates across his lower abdomen, but is most predominant in the RLQ and is getting worse. He has never had this kind of pain before. He is reporting associated nausea and 1 episode of vomiting. Review of Systems: 14-point Review of Systems conducted; positives are noted per HPI Pertinent Past Medical History: Reviewed and not pertinent to this encounter Pertinent Past Surgical History: Reviewed and not pertinent to this encounter Pertinent Family History: Reviewed and not pertinent to this encounter No hx of IBD or Crohns disease Pertinent Social History: Reviewed; significant for no tobacco, ETOH, recreational drug use Pertinent Medications: The patient takes no pertinent medications. Denies recent abx usage Vitals: Blood pressure (!) 151/92, pulse 110, temperature 36.9 ?C (98.4 ?F), temperature source Oral, resp. rate 20, height 1.753 m (5' 9"), weight 81.6 kg (180 lb), SpO2 100%. Physical Exam Vitals and nursing note reviewed. Constitutional: General: He is awake. He is not in acute distress. Appearance: He is well-developed. He is not ill-appearing or toxic-appearing. HENT: Head: Normocephalic and atraumatic. Eyes: General: No scleral icterus. Cardiovascular: Rate and Rhythm: Normal rate and regular rhythm. Pulmonary: Effort: Pulmonary effort is normal. No accessory muscle usage or respiratory distress. Breath sounds: No transmitted upper airway sounds. Abdominal: General: There is no distension. There are no signs of injury. Palpations: Abdomen is soft. Tenderness: There is abdominal tenderness (RLQ). There is no guarding. Skin: General: Skin is warm and dry. Neurological: Mental Status: He is alert and easily aroused. Lab Studies: Reviewed by myself independently. Significant findings include WBC 6 on OSH labs. Imaging Studies: CTAP obtained from OSH sent without complete imaging set, could not visualize appendix Clinical Communication: discussed care with nursing staff and discussed care with ED physician Notes Reviewed: nursing notes/clinical documentation reviewed, ED documentation reviewed, OSH documentation reviewed Russel Roy is a 33 year old male presenting with 2 day hx of worsening RLQ pain, clinically concerning for acute appendicitis. Plan: -obtain CTAPW -plan for lap appy 03/13/24 if imaging shows evidence of appendicitis -please keep NPO past midnight -admit to floor -IV zosyn, mIVF -plan control and nausea control as needed -obtain am labs including cbc -DVT ppx: LVX Patient discussed with faculty, Dr. Ballard. Jung Wilson DO PGY-2 Surgery Resident Associated attestation - Avani Ballard MD - 03/13/2024 9:12 AM CDT I personally examined the patient on 03/12/[address] Wilson's resident note as written . I actively participated in the decision-making process. Please see the resident's note for additional details. Freestanding ER with CT read that is concerning for possible dilated appendix. WBC from OSH is normal He reports 2 days of abdominal pain Clinical exam suggest pain greater than what would be expected based on CT read I couldn't open up the OSH disc to review CT A repeat CT is ordered tonight and we will re-examine in the morning. Low threshold for lap appy Avani Ballard MD LOU-SURGERY [facility] - Health History and Physical Notes Date/Time Note Provider Source 2024-03-13 01:51:00 [facility] Hospitalist Admission H&P Date of Service: 03/13/2024 CHIEF COMPLAINT: Acute appendicitis HISTORY OF PRESENT ILLNESS Russel Roy is a 33 year old male who presents with right lower quadrant abdominal pain. Pain is in the right lower quadrant with minimal radiation to the lower abdomen. Patient has been having pain for the last couple of days with no significant improvement. Patient decided come into the emergency room. In the emergency room, patient's imaging study did not reveal any significant abnormality. However, because patient's clinical symptoms are consistent with appendicitis decision was made to admit the patient to the hospital for further evaluation and consultation with general surgery. Patient also has a history of tobacco use. But patient denies any other medical issues. The patient is to proceed with surgical intervention patient is low risk for any cardiopulmonary complications. PAST MEDICAL HISTORY No past medical history on file. PAST SURGICAL HISTORY No past surgical history on file. ALLERGIES No Known Allergies MEDICATIONS Current home medication list reviewed: There are no discharge medications for this patient. FAMILY HISTORY No family history on file. SOCIAL HISTORY Social History Socioeconomic History Marital status: Single Number of children: 0 Highest education level: Some college, no degree Tobacco Use Smoking status: Every Day Current packs/day: 0.25 Average packs/day: 0.3 packs/day for 2.0 years (0.5 ttl pk-yrs) Types: Cigarettes Passive exposure: Current Smokeless tobacco: Former REVIEW OF SYSTEMS 10 systems negative except per HPI PHYSICAL EXAMINATION BP (!) 131/93 | Pulse 74 | Temp 36.6 ?C (97.9 ?F) (Temporal Artery) | Resp 16 | Ht 1.753 m (5' 9") | Wt 81.6 kg (180 lb) | SpO2 100% | BMI 26.58 kg/m? General: No acute distress HEENT: Normal oral mucosa, anicteric sclerae, NCAT Cardiovascular: RRR Lungs: Symmetric expansion, clear bilaterally Abdomen: Right lower quadrant tenderness with rebound tenderness Musculoskeletal: No synovitis, normal muscle mass Genitourinary: Normal Skin: No rash, no skin lesions Extremities: No clubbing, no cyanosis, no lower extremity edema Neuro: AAOx3, no focal deficits Psych: Normal affect LABS - reviewed pertinent labs as below: CBC BMP PT/INR WBC (10*3/?L) Date Value 03/13/2024 5.61 NA (mmol/L) Date Value 03/13/2024 139 No results found for: "PT" RBC (10*6/?L) Date Value 03/13/2024 4.53 K (mmol/L) Date Value 03/13/2024 3.9 INR (no units) Date Value 03/13/2024 1.0 PLT (10*3/?L) Date Value 03/13/2024 294 CALCIUM (mg/dL) Date Value 03/13/2024 8.7 HGB (g/dL) Date Value 03/13/2024 13.7 CL (mmol/L) Date Value 03/13/2024 111 (H) aPTT HCT (%) Date Value 03/13/2024 40.2 BUN (mg/dL) Date Value 03/13/2024 7 APTT Patient (Seconds) Date Value 03/13/2024 31 CREATININE (mg/dL) Date Value 03/13/2024 0.74 IMAGING - reviewed, pertinent results as below: Hospital Encounter on 03/12/24 CT ABDOMEN PELVIS W CONTRAST Narrative EXAMINATION: CT ABDOMEN AND PELVIS WITH CONTRAST 03/12/2024 8:05 PM Ordering physician: LAURY VERA CLINICAL HISTORY: Right lower quadrant pain COMPARISON EXAM(S): None Technique: Contiguous axial sections through the abdomen and pelvis were obtained from the lung bases to the ischial tuberosities following the uneventful administration of intravenous contrast. Coronal and sagittal reformatted sequences were also obtained. Oral contrast was not administered.?CT scan done according to ALARA (As Low as Reasonably Achievable)? Findings: The visualized lung beasley are clear. No pleural effusions. CT abdomen:Punctate splenic granuloma. The liver, gallbladder, biliary tree, pancreas, kidneys, adrenal glands, ureters, appendix, and gastrointestinal tract, are radiographically unremarkable in appearance. No focal fluid collections or pathologic adenopathy. CT pelvis: The prostate, seminal vesicles, bladder, and pelvic structures, are radiographically unremarkable in appearance. No focal fluid collections or pathologic adenopathy. The visualized bony skeleton demonstrates no acute radiographic abnormalities. Impression Impression: 1. Radiographically unremarkable CAT scan of the abdomen and pelvis. RL: [id number] HS:Y SSMENT: 1. Right lower quadrant tenderness; possible appendicitis PLAN: -aggressive IV hydration -IV antibiotics -pain control -surgery consultation DVT prophylaxis: enoxaparin Stress ulcer prophylaxis: pantoprazole Code status: FULL Advanced Care Planning (Z71.89) Above assessment and plan discussed at length with patient, patient expressed full understanding. Questions and concerned addressed. Surrogate decision maker: NO Level of care expected after discharge: HOME Time spent: 3 minutes discussing the advanced care plan Smoking Cessation: (Z71.6) Tobacco user?: NO Patient will require observation [place] TRANSLATOR/INTERPRETER was verified during stay Carlos Walters MD T [facility] - Health Notes Date/Time Note Provider Source 2024-04-09 10:57:51 Access Center: EPIC Open Encounter Maintenance Nurse Note: RN closing encounter in EPIC r/t encounter created without notes, details, orders, future appointments, or clinical action items to be completed. Amarilis Finn RN [facility] Access Center Triage Nurse Amarilis Finn RN [facility] 2024-03-20 17:01:43 Error Debbie De La Rosa RN [facility] 2024-03-19 10:35:53 [facility] has now faxed in FMLA forms to be filled out and signed. Forms placed in nurses basket. Courtney Israel [facility] 2024-03-14 11:57:51 TRANSITIONAL CARE MANAGEMENT ASSESSMENT 03/14/2024 Russel Roy [id number] Russel Roy is a 33 year old /White male was admitted on 03/12/24 to [facility] ICU. He was discharged on 03/13/24 with discharge disposition of HR- Routine Discharge. Admitting Physician: Carlos Walters Discharge Diagnosis: Possible acute appendicitis Anxiety No linked episodes TCM Wmy-ypvc-vs-face outreach documentation: Discharge Assessment Chart Assessed: 03/14/24 TCM Outreach Completed: 03/14/24 Do you have a few minutes to speak with me about how you are doing at home?: Yes Discharge Instructions Do you understand your at-home instructions?: Yes Medications Have you filled your prescriptions and do you have them in your home? : N/A (no new medications with this discharge) Supplies Did you receive applicable home medical supplies/equipment?: N/A Follow Up Appointment Has a follow up appointment been scheduled?: No May I assist with scheduling this appointment?: Patient will schedule Do you have any questions about your follow up appointments?: No Are you able to get to your appointment? Who will be taking you?: Yes Home Health Assistance Has the home health nurse contacted you since you've been home?: N/A Survey - Recognition Do you have any other questions or concerns at this time?: No Future Appointments: Jennifer Van RN [facility] 2024-03-14 08:32:51 [facility] faxed In letter requesting more information. Placed in nurses basket for review. Courtney Israel [facility] 2024-03-13 16:21:52 Patient was discharged from the hospital 03/12 and stated he is needing a more detailed work release note for his job. Job stated he needs more specific instructions on his work note. The one he received does not have enough details. Please advise and contact patient. Ledy Leach [facility] 2024-03-13 10:49:31 Problem: Pain Goal: Control of pain at or below patient's documented comfort goal 03/13/2024 1049 by Jamee Caldwell RN Outcome: Resolved 03/13/2024 1049 by Jamee Caldwell RN Outcome: Adequate for discharge 03/13/2024 0944 by Jamee Caldwell RN Outcome: Progressing as expected Goal: Reduction in pain sensation 03/13/2024 1049 by Jamee Caldwell RN Outcome: Resolved 03/13/2024 1049 by Jamee Caldwell RN Outcome: Adequate for discharge 03/13/2024 0944 by Jamee Caldwell RN Outcome: Progressing as expected Problem: Discharge Planning Goal: Adequate for discharge 03/13/2024 1049 by Jamee Caldwell RN Outcome: Resolved 03/13/2024 1049 by Jamee Caldwell RN Outcome: Adequate for discharge 03/13/2024 0944 by Jamee Caldwell RN Outcome: Progressing as expected Problem: Falls, Risk of Goal: Absence of falls 03/13/2024 1049 by Jamee Caldwell RN Outcome: Resolved 03/13/2024 1049 by Jamee Caldwell RN Outcome: Adequate for discharge 03/13/2024 0944 by Jamee Caldwell RN Outcome: Progressing as expected Problem: Infection, Risk of or Actual Goal: Absence of infection 03/13/2024 1049 by Jamee Caldwell RN Outcome: Resolved 03/13/2024 104 by Jamee Caldwell RN Outcome: Adequate for discharge 03/13/2024 0944 by Jamee Caldwell RN Outcome: Progressing as expected Jamee Caldwell RN [facility] 2024-03-13 10:49:22 Problem: Pain Goal: Control of pain at or below patient's documented comfort goal 03/13/2024 1049 by Jamee Caldwell RN Outcome: Adequate for discharge 03/13/2024 0944 by Jamee Caldwell RN Outcome: Progressing as expected Goal: Reduction in pain sensation 03/13/2024 1049 by Jamee Caldwell RN Outcome: Adequate for discharge 03/13/2024 0944 by Jamee Caldwell RN Outcome: Progressing as expected Problem: Discharge Planning Goal: Adequate for discharge 03/13/2024 1049 by Jamee Caldwell RN Outcome: Adequate for discharge 03/13/2024 0944 by Jamee Caldwell RN Outcome: Progressing as expected Problem: Falls, Risk of Goal: Absence of falls 03/13/2024 1049 by Jamee Caldwell RN Outcome: Adequate for discharge 03/13/2024 0944 by Jamee Caldwell RN Outcome: Progressing as expected Problem: Infection, Risk of or Actual Goal: Absence of infection 03/13/2024 1049 by Jamee Caldwell RN Outcome: Adequate for discharge 03/13/2024 0944 by Jamee Caldwell RN Outcome: Progressing as expected [facility] 2024-03-13 09:44:43 Problem: Pain Goal: Control of pain at or below patient's documented comfort goal Outcome: Progressing as expected Goal: Reduction in pain sensation Outcome: Progressing as expected Problem: Discharge Planning Goal: Adequate for discharge Outcome: Progressing as expected Problem: Falls, Risk of Goal: Absence of falls Outcome: Progressing as expected Problem: Infection, Risk of or Actual Goal: Absence of infection Outcome: Progressing as expected [facility] 2024-03-12 23:50:37 Nurse Report Report given to Driss BLAKE. Chief complaint, assessment findings, infusion verify and orders reviewed. Plan of care discussed at bedside with patient and both nurses. Patient/family members verbalized understanding. Kassidy Lynch RN [facility] 2024-03-12 22:30:00 Pt ambulated from FT rooms to TX7. Gait unsteady, weak. Pt required hands on support to get to room. States "I just feel light headed, that's all. I am good." Advised pt to use call light to call for assistance to use restroom as gait is unsteady and we do not want pt to fall. Pt agreeable. Call light in pt's lap. [facility] 2024-03-12 18:53:19 Report to [facility] Sarah Hernandez RN [facility] 2024-03-12 17:16:44 Patient states: "I've been having RLQ abdominal pain since 2 days but today's 10x worse. I was at the [place] ER today, CT scan was done and showed borderline appendicitis." [facility] 2024-03-12 17:02:00 Images from the original note were not included. EMERGENCY DEPARTMENT ENCOUNTER [facility] Patient Name: Russel Roy Date of : 1990 33 year old Exam Room:[place] [address] Primary Care Physician: No primary care provider on file. 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 I was at the [place] ER today, CT scan was done and showed borderline appendicitis." HPI History provided by: Patient Abdominal Pain Pain location: RLQ Pain quality: aching and cramping Pain radiates to: Does not radiate Pain severity: Moderate Timing: Constant Chronicity: New Relieved by: Nothing Worsened by: Nothing Associated symptoms: no chest pain, no chills, no cough, no dysuria, no fatigue, no fever, no hematemesis, no hematochezia, no nausea, no shortness of breath and no vomiting Past Medical History / Immunizations No past medical history on file. Tetanus received in last 5 years: Unknown Childhood immunizations: Up-to-date Past Surgical History No past surgical history on file. Allergies No Known Allergies Social History Tobacco Use Every Day; 0.3 packs/day; Smoked an average of 0.3 packs/day for 2.0 years; Types: Cigarettes Passive Exposure: Current Smokeless Tobacco: Former user of smokeless tobacco. Tobacco Cessation: Ready to quit: Yes; Counseling given: Yes Review of Systems Review of Systems Constitutional: Negative. Negative for chills, fatigue, fever and unexpected weight change. HENT: Negative. Eyes: Negative. Negative for discharge and itching. Respiratory: Negative. Negative for cough, chest tightness, shortness of breath and wheezing. Cardiovascular: Negative. Negative for chest pain and palpitations. Gastrointestinal: Positive for abdominal pain. Negative for abdominal distention, hematemesis, hematochezia, nausea and vomiting. Genitourinary: Negative. Negative for dysuria, urgency, frequency and flank pain. Musculoskeletal: Negative. Skin: Negative. Negative for color change, pallor and wound. Neurological: Negative. Negative for dizziness, syncope, light-headedness and headaches. Psychiatric/Behavioral: Negative. Negative for agitation and behavioral problems. All other systems reviewed and are negative. Endocrine: Endocrine negative Physical Exam ED Triage Vitals [03/12/24 1718] Weight 81.6 kg (180 lb) Actual or estimated Estimated by patient/family report Height 1.753 m (5' 9") BP (!) 151/92 Pulse 110 Resp 20 Temp 36.9 ?C (98.4 ?F) Temp source Oral SpO2 100 % Measured on Room air Physical Exam Vitals reviewed. Constitutional: Appearance: He is well-developed. HENT: Head: Normocephalic and atraumatic. Nose: Nose normal. Eyes: Conjunctiva/sclera: Conjunctivae normal. Neck: Trachea: No tracheal deviation. Cardiovascular: Rate and Rhythm: Normal rate and regular rhythm. Heart sounds: Normal heart sounds. No murmur heard. No friction rub. Pulmonary: Effort: Pulmonary effort is normal. No respiratory distress. Breath sounds: Normal breath sounds. No stridor. No wheezing or rales. Abdominal: General: Bowel sounds are normal. There is no distension. Palpations: Abdomen is soft. Tenderness: There is abdominal tenderness in the right lower quadrant. There is no guarding or rebound. Musculoskeletal: General: Normal range of motion. Cervical back: Normal range of motion and neck supple. Skin: General: Skin is warm and dry. Neurological: Mental Status: He is alert and oriented to person, place, and time. Cranial Nerves: No cranial nerve deficit. Sensory: No sensory deficit. Psychiatric: Behavior: Behavior normal. Labs Lab Results COMP. METABOLIC PANEL (58496) - Abnormal Result Value Ref Range NA 139 135 - 145 mmol/L K 4.2 3.5 - 5.0 mmol/L CL 110 (*) 98 - 108 mmol/L CO2 TOTAL 21 (*) 23 - 31 mmol/L AGAP 8 2 - 16 BUN 10 7 - 23 mg/dL GLUCOSE 102 70 - 110 mg/dL CREATININE 0.77 0.60 - 1.25 mg/dL TOTAL BILI 1.2 (*) 0.1 - 1.1 mg/dL CALCIUM 9.7 8.6 - 10.6 mg/dL T PROTEIN 8.2 6.3 - 8.2 g/dL ALBUMIN 4.9 3.5 - 5.0 g/dL ALK PHOS 83 34 - 122 U/L ALTv 28 5 - 50 U/L AST(SGOT) 33 13 - 40 U/L eGFR 122.7 mL/min/1.73m2 URINALYSIS - Abnormal APPEARANCE Clear Clear COLOR Yellow Yellow PH 6.0 4.8 - 8.0 SP GRAVITY 1.024 1.003 - 1.030 GLU U QUAL Normal Normal BLOOD Negative Negative KETONES 80 mg/dL (*) Negative PROTEIN Negative Negative UROBILIN 2.0 mg/dL (*) Normal BILIRUBIN Negative Negative NITRITE Negative Negative LEUK LATONYA Negative Negative RBC/HPF 1 0 - 3 HPF WBC/HPF <1 0 - 5 HPF BACTERIA Negative Negative MUCOUS Slight (*) Negative LPF SQ EPITH <1 HPF SPERM 5 (*) <=1 HPF PHOSPHORUS - Abnormal PHOSPHORUS 2.2 (*) 2.5 - 5.0 mg/dL CBC WITH DIFF WBC 6.77 4.20 - 10.70 10*3/?L RBC 4.93 4.26 - 5.52 10*6/?L HGB 14.9 12.2 - 16.4 g/dL HCT 43.2 38.4 - 49.3 % MCV 87.6 81.7 - 95.6 fL MCH 30.2 26.1 - 32.7 pg MCHC 34.5 31.2 - 35.0 g/dL RDW-SD 42.4 38.5 - 51.6 fL RDW-CV 13.2 12.1 - 15.4 % PLT 305 150 - 328 10*3/?L MPV 10.3 9.8 - 13.0 fL NRBC/100 WBC 0.0 0.0 - 10.0 /100 WBCs NRBC x10 3 <0.01 10*3/?L GRAN MAT (NEUT) % 55.8 % IMM GRAN % 0.30 % LYMPH % 33.1 % MONO % 9.0 % EOS % 1.2 % BASO % 0.6 % GRAN MAT x10 3 (ANC) 3.78 1.99 - 6.95 10*3/uL IMM GRAN x10 3 <0.03 0.00 - 0.06 10*3/uL LYMPH x10 3 2.24 1.09 - 3.23 10*3/uL MONO x10 3 0.61 0.36 - 1.02 10*3/uL EOS x10 3 0.08 0.06 - 0.53 10*3/uL BASO x10 3 0.04 0.01 - 0.09 10*3/uL Imaging CT ABDOMEN PELVIS W CONTRAST Final Result EXAMINATION: CT ABDOMEN AND PELVIS WITH CONTRAST 03/12/2024 8:05 PM Ordering physician: LAURY VEAR CLINICAL HISTORY: Right lower quadrant pain COMPARISON EXAM(S): None Technique: Contiguous axial sections through the abdomen and pelvis were obtained from the lung bases to the ischial tuberosities following the uneventful administration of intravenous contrast. Coronal and sagittal reformatted sequences were also obtained. Oral contrast was not administered.?CT scan done according to ALARA (As Low as Reasonably Achievable)? Findings: The visualized lung beasley are clear. No pleural effusions. CT abdomen:Punctate splenic granuloma. The liver, gallbladder, biliary tree, pancreas, kidneys, adrenal glands, ureters, appendix, and gastrointestinal tract, are radiographically unremarkable in appearance. No focal fluid collections or pathologic adenopathy. CT pelvis: The prostate, seminal vesicles, bladder, and pelvic structures, are radiographically unremarkable in appearance. No focal fluid collections or pathologic adenopathy. The visualized bony skeleton demonstrates no acute radiographic abnormalities. IMPRESSION Impression: 1. Radiographically unremarkable CAT scan of the abdomen and pelvis. RL: [id number] HS:Y Orders and Treatments Orders Placed This Encounter Procedures CT ABDOMEN PELVIS W CONTRAST CBC WITH DIFF COMP. METABOLIC PANEL ([id number]) URINALYSIS CBC with Differential Basic Metabolic Panel (NA, K, CL, CO2, GLUCOSE, BUN, CREATININE, CA) Magnesium Serum Phosphorus Serum Prothrombin Time / INR aPTT Consult General Surgery Orders Placed This Encounter Medications morpHINE (4 mg/mL) injection 4 mg ondansetron (ZOFRAN (PF)) injection 4 mg iopamidol (ISOVUE 370-500 mL) injection 79 mL NaCl 0.9% (NS) bolus infusion 1,000 mL LORazepam (ATIVAN) injection 1 mg NaCl 0.9% (NS) IV infusion 1,000 mL enoxaparin (LOVENOX) injection 40 mg acetaminophen (TYLENOL) tablet 650 mg FENTanyl PF (SUBLIMAZE (PF)) injection 12.5 mcg ondansetron (ZOFRAN (PF)) injection 4 mg piperacillin-tazobactam (ZOSYN) 3.375 g in NaCl 0.9% (NS) 100 mL MINI-BAG ondansetron (ZOFRAN (PF)) injection 4 mg morpHINE (4 mg/mL) injection 4 mg Procedures Procedures Notes & MDM Patient was evaluated for an emergency medical condition related to Abdominal Pain (RLQ) DDX Appendicitis Diagnosis/Impression as of 03/12/24 2351 RLQ abdominal pain Undifferentiated abdominal pain Medical Decision Making Problems Addressed: RLQ abdominal pain: acute illness or injury Amount and/or Complexity of Data Reviewed Labs: ordered. Decision-making details documented in ED Course. Radiology: ordered and independent interpretation performed. Decision-making details documented in ED Course. Risk Prescription drug management. Parenteral controlled substances. Decision regarding hospitalization. AdmissionCare Guideline: Abdominal Pain, Undiagnosed, Observation Based on the indications selected for the patient, the bed status of Observation was determined to be MET The following indications were selected as present at the time of evaluation of the patient: - Suspected condition requiring continued monitoring or testing beyond emergency department care (eg, ectopic , appendicitis, bowel ischemia) AdmissionCare documentation entered by: Laury Vera [facility] [employer], 28 edition, Copyright ? 2023 [facility] [employer] All Rights Reserved. [id number] Limitations to patient care and compliance: none. Assessment/Summary: The patient is a 33-year-old gentleman who presents for right lower quadrant pain. He comes in from outside facility where he had CT scan which demonstrated appendicitis. The patient does not have a fever or white count. Hematological chemistry studies with acceptable limits. He for discussed the disc however the images were incomplete. Did not demonstrate his lower abdomen and pelvis. We had to repeat scan this patient. However, scan does not demonstrate acute appendicitis. Dr. Ballard was notified. She would like to admit the patient for serial abdominal exams and she will reevaluate in the morning. The patient was admitted in stable condition. History, physical exam findings, results of visit, differential diagnosis, medication regimens and plan of future care have been considered. Additional MDM may be found in the ED course. Differential diagnosis considered and final disposition made based on information gathered during evaluation and may not be completely ruled out or specifically listed. Vital signs were rechecked before final disposition. Diagnosis Final diagnoses: [R10.31] RLQ abdominal pain (Primary) [R10.9] Undifferentiated abdominal pain Disposition & Follow Up ED Disposition ED Disposition Admit - Observation Condition -- Comment Treatment Team: [facility] [[id number]] Patient's Medications No medications on file Laury Vera Jr., MD Clinical Debone Supervisor [facility] Emergency Department [employer] is used frequently and may produce errors. Promptly contact for obvious discrepancies. Laury Vera MD 03/12/24 8477 Laury Vera MD 03/12/24 5840 [facility] 2024-03-12 17:02:00 AdmissionCare Guideline: Abdominal Pain, Undiagnosed, Observation Based on the indications selected for the patient, the bed status of Observation was determined to be MET The following indications were selected as present at the time of evaluation of the patient: - Suspected condition requiring continued monitoring or testing beyond emergency department care (eg, ectopic , appendicitis, bowel ischemia) AdmissionCare documentation entered by: Laury Vera [facility], 28th edition, Copyright ? 2023 [facility] All Rights Reserved. [id number] [facility]
--- NOTE | 2024-11-26 15:13 | EDPHYS ---
Physician Documentation [facility] Name: Russel Roy Age: 34 yrs Sex: Male : 1990 Arrival Date: 11/26/2024 Time: 13:06 Bed 11 Private MD: ED Physician Tracy Sams HPI: 11/26 15:26 This 34 yrs old Male presents to ER via Ambulatory with complaints of Flu gb1 Symptoms. 15:26 34-year-old male that felt some fever and chills no nausea or vomiting no abdominal gb1 pain or headache no neck pain reported. Chills started on 2 days ago. Patient is concerned that he has influenza. He denies any sick contacts. He is otherwise healthy with a past medical history of anxiety. He denies any drug allergies.. Historical: - Allergies: 13:33 No Known Allergies; ko1 - Home Meds: 13:33 Prozac Oral 1 cap daily for anxiety with depression [Active]; ko1 - PMHx: 13:33 Anxiety; ko1 - PSHx: 13:33 None; ko1 - Immunization history:: Adult Immunizations up to date. - Infectious Disease History:: Denies. - Social history:: Smoking status: Patient reports the use of cigarette tobacco products, denies chronic smoking, but will smoke occasionally. Exam: 15:26 Constitutional: This is a well developed, well nourished patient who is awake, alert, gb1 and in no acute distress. Head/Face: Normocephalic, atraumatic. Eyes: Pupils equal round and reactive to light, extra-ocular motions intact. Lids and lashes normal. Conjunctiva and sclera are non-icteric and not injected. Cornea within normal limits. Periorbital areas with no swelling, redness, or edema. ENT: Nares patent. No nasal discharge, no septal abnormalities noted. Tympanic membranes are normal and external auditory canals are clear. Oropharynx with no redness, swelling, or masses, exudates, or evidence of obstruction, uvula midline. Mucous membranes moist. Neck: Trachea midline, no thyromegaly or masses palpated, and no cervical lymphadenopathy. Supple, full range of motion without nuchal rigidity, or vertebral point tenderness. No Meningismus. Chest/axilla: Normal chest wall appearance and motion. Nontender with no deformity. No lesions are appreciated. Cardiovascular: Regular rate and rhythm with a normal S1 and S2. No gallops, murmurs, or rubs. Normal PMI, no JVD. No pulse deficits. Respiratory: Lungs have equal breath sounds bilaterally, clear to auscultation and percussion. No rales, rhonchi or wheezes noted. No increased work of breathing, no retractions or nasal flaring. Abdomen/GI: Soft, non-tender, with normal bowel sounds. No distension or tympany. No guarding or rebound. No evidence of tenderness throughout. Back: No spinal tenderness. No costovertebral tenderness. Full range of motion. Skin: Warm, dry with normal turgor. Normal color with no rashes, no lesions, and no evidence of cellulitis. MS/ Extremity: Pulses equal, no cyanosis. Neurovascular intact. Full, normal range of motion. Neuro: Awake and alert, GCS 15, oriented to person, place, time, and situation. Cranial nerves II-XII grossly intact. Motor strength 5/5 in all extremities. Sensory grossly intact. Cerebellar exam normal. Normal gait. Vital Signs: 13:30 BP 144 / 94; Pulse 83; Resp 16; Temp 97; Pulse Ox 100% ; ko1 MDM: 14:23 Medical Screening Exam initiated gb1 15:26 Data reviewed: lab test result(s), Influenza AMB are negative. ED course: 34-year-old gb1 male chief complaint of flu symptoms, influenza A \T\ B are negative. Doubt focal pneumonia at this time will not get chest x-ray satting 100% no signs of increased work of breathing or retractions. Patient is nontachycardic and otherwise appears very well and requested a work note prior to discharge home today. Consider COVID or other viral URI. Will not initiate antibiotic therapy at this time patient supplied with explosive return precautions given prior to discharge home today.. 11/26 13:48 Order name: Influenza Screen (a \T\ B); Complete Time: 14:48 gb1 Administered Medications: No medications were administered Disposition Summary: 11/26/24 15:12 Discharge Ordered Notes: Location: Home page hospital Condition: Fair gb1 Diagnosis - Viral infection, unspecified gb1 Followup: 1 - With: Private Physician - When: - Reason: Continuance of care Discharge Instructions: - Discharge Summary Sheet ko1 - Viral Illness, Adult gb1 Forms: - Work release form ko1 - Medication Reconciliation Form gb1 - Antibiotic Education gb1 - Prescription Opioid Use gb1 - Patient Portal Instructions gb1 - Leadership Thank You Letter gb1 Signatures: Dispatcher [employer] Heena Valle, RN RN ko1 Tracy Sams MD MD gb1
--- NOTE | 2024-11-26 15:13 | ER ---
Nurse's Notes [facility] Name: Russel Roy Age: 34 yrs Sex: Male : 1990 Arrival Date: 11/26/2024 Time: 13:06 Bed 11 Private MD: Diagnosis: Viral infection, unspecified Presentation: 11/26 13:30 Chief complaint: Patient states: body aches, chills, diarrhea, started last night, took ko1 ibuprofen this morning. Coronavirus screen: At this time, the client does not indicate any symptoms associated with coronavirus-19. Ebola Screen: No symptoms or risks identified at this time. Initial Sepsis Screen: Does the patient meet any 2 criteria? No. Patient's initial sepsis screen is negative. Does the patient have a suspected source of infection? No. Patient's initial sepsis screen is negative. Risk Assessment: Do you want to hurt yourself or someone else? Patient reports no desire to harm self or others. Onset of symptoms was November 26, 2024. 13:30 Method Of Arrival: Ambulatory ko1 13:30 Acuity: KANE 4 ko1 Triage Assessment: 13:33 General: Appears in no apparent distress. Behavior is calm, cooperative, appropriate ko1 for age. Pain: Complains of pain in generalized. Historical: - Allergies: 13:33 No Known Allergies; ko1 - Home Meds: 13:33 Prozac Oral 1 cap daily for anxiety with depression [Active]; ko1 - PMHx: 13:33 Anxiety; ko1 - PSHx: 13:33 None; ko1 - Immunization history:: Adult Immunizations up to date. - Infectious Disease History:: Denies. - Social history:: Smoking status: Patient reports the use of cigarette tobacco products, denies chronic smoking, but will smoke occasionally. Screenin:42 [facility] ED Fall Risk Assessment (Adult) History of falling in the last 3 months, ss including since admission No falls in past 3 months (0 pts) Confusion or Disorientation No (0 pts) Intoxicated or Sedated No (0 pts) Impaired Gait No (0 pts) Mobility Assist Device Used No (0 pt) Altered Elimination No (0 pt) Score/Fall Risk Level 0 - 2 = Low Risk Oriented to surroundings, Maintained a safe environment. Abuse screen: Denies threats or abuse. Denies injuries from another. Nutritional screening: No deficits noted. Tuberculosis screening: Never had TB. Assessment: 15:42 Reassessment: Patient appears in no apparent distress at this time. Patient and/or ss family updated on plan of care and expected duration. Pain level reassessed. Patient is alert, oriented x 3, equal unlabored respirations, skin warm/dry/pink. Vital Signs: 13:30 BP 144 / 94; Pulse 83; Resp 16; Temp 97; Pulse Ox 100% ; ko1 ED Course: 13:09 Patient arrived in ED. im 13:16 Tracy Sams MD is Attending Physician. gb1 13:30 Heena Jaramillo, RN is Primary Nurse. ko1 13:33 Triage completed. ko1 13:33 Arm band placed on right wrist. Patient placed in waiting room, Patient notified of ko1 wait time. 13:50 Influenza Screen (a \T\ B) Sent. ko1 13:50 Flu and/or RSV swab sent to lab. ko1 15:42 Patient has correct armband on for positive identification. ss 15:42 No provider procedures requiring assistance completed. Patient did not have IV access ss during this emergency room visit. Administered Medications: No medications were administered Medication: 15:42 VIS not applicable for this client. ss Outcome: 15:12 Discharge ordered by . gb1 15:42 Discharged to home ambulatory, ss 15:42 Condition: good 15:42 Discharge instructions given to patient, Instructed on discharge instructions, follow up and referral plans. medication usage, Demonstrated understanding of instructions, follow-up care, medications, 15:43 Patient left the ED. ss Signatures: Christina Hayse RN RN Heena Jaramillo, RN RN ko Lynnette Millan Tracy Sams MD MD gb
[2024-11-26 15:47] VITALS: BP 144/94; TEMP 97; O2SAT 100
== END 2024-11-26 15:43 | disposition home or self-care (01) ==
LOC: ER 13:06
DX: B34.9 Viral infection, unspecified (principal)
CPT/HCPCS: 87804